=== PATIENT | male | born 2000 | race Asian ===

== ENCOUNTER 2023-01-25 08:04 | Emergency (ER) | payer BC ==
[2023-01-25 08:11] VITALS: BP 144/88; PULSE 103
[2023-01-25] MEDS: Ketorolac 30 MG/ML SDV IM ONE (09:11)
[2023-01-25] MEDS: methylPREDNISolone Sodium Succinate 125 MG/2 ML SDV IM ONE (09:13)
== END 2023-01-25 09:40 | disposition home or self-care (01) ==
LOC: LL.ED 08:04
DX: J02.9 Acute pharyngitis, unspecified (principal); Z72.0 Tobacco use
CPT/HCPCS: 87081; 87430; 96372; 99283; J1885; J2930

== ENCOUNTER 2023-09-23 20:34 | Emergency (ER) | payer BC ==
[2023-09-23 21:27] LABS: INFLUENZA A NAA NEGATIVE (NEGATIVE); INFLUENZA B NAA NEGATIVE (NEGATIVE); RESPIRATORY SYNCYTIAL VIR NAA NEGATIVE (NEGATIVE)
[2023-09-23 21:29] LABS: CORONAVIRUS COVID-19 NAA POSITIVE (NEGATIVE)
== END 2023-09-23 22:07 | disposition home or self-care (01) ==
LOC: LL.ED 20:34
DX: U07.1 COVID-19 (principal); Z79.899 Other long term (current) drug therapy
CPT/HCPCS: 0241U; 99283